=== PATIENT | male | born 1935 | race Caucasian/White ===

== ENCOUNTER 2019-12-17 23:13 | Inpatient (IN) | payer MEDICARE, BC ==
[~2019-12-17] VITALS: Ht 185.4 cm; Wt 86.6 kg
[2019-12-17] MEDS ORDERED: DEXTROSE 50%-WATER 50 ML DISP.SYRIN ONE (23:19)
--- NOTE | 2019-12-17 23:22 | NUR ---
PT CAME TO THE ED C/O LOW BLOOD SUGAR. UPON ARRIVAL BS WAS AT 32. PT CONFUSED, AGITATED, VSS, NO ACUTE DISTRESS NOTED. MD AT BEDSIDE. PT CONNECTED TO THE MONITOR AND POX
--- NOTE | 2019-12-17 23:25 | NUR ---
32 BLOOD SUGAR NOTED. MD MADE AWARE AT BEDSIDE. ORDERS RECEIVED
--- NOTE | 2019-12-17 23:28 | NUR ---
PT MEDICATED ORDERED
--- NOTE | 2019-12-17 23:29 | NUR ---
PATIENT IS AAOX4. NO SOB. BREATHING EVENLY AND UNLABORED ON ROOM AIR. CONNECTED TO BALLET SOLOIST.
[2019-12-17] MEDS ORDERED: DEXTROSE 50%-WATER 50 ML DISP.SYRIN IVP ONE (23:30)
[2019-12-17 23:47] LABS: BASOPHILS % (AUTO) 0.4 % (0.0-2.0); EOSINOPHILS % (AUTO) 1.2 % (0.0-6.0); HEMATOCRIT 43 % (39-51); HEMOGLOBIN 14.2 g/dL (13.5-17.5); LYMPHOCYTES # (AUTO) 1.9 /CMM (0.8-4.8); LYMPHOCYTES % (AUTO) 22.6 % (20.0-44.0); MEAN CORPUSCULAR HGB CONC 33 g/dl (31.0-36.0); MEAN CORPUSCULAR VOLUME 97 fL (80-96); MONOCYTES # (AUTO) 0.6 /CMM (0.1-1.30); MONOCYTES % (AUTO) 7.5 % (2.0-12.0); NEUTROPHILS # (AUTO) 5.8 /CMM (1.8-8.9); NEUTROPHILS % (AUTO) 68.3 % (43.0-81.0); PLATELET COUNT (AUTO) 163 /CMM (150-450); RED BLOOD CELL COUNT(AUTO) 4.44 MIL/uL (4.5-6.0); WHITE BLOOD COUNT (AUTO) 8.5 K/uL (4.3-11.0)
--- NOTE | 2019-12-18 00:03 | NUR ---
PATIENT PROVIDED WITH SANDWICH TO EAT.
[2019-12-18 00:09] LABS: ALANINE AMINOTRANSFERASE 37 U/L (12-78); ALBUMIN 4.1 g/dL (3.4-5.0); ALKALINE PHOSPHATASE 135 U/L (46-116); ASPARTATE AMINOTRANSFERASE 39 U/L (15-37); BILIRUBIN,DIRECT 0.2 mg/dL (0.0-0.2); BILIRUBIN,TOTAL 0.7 mg/dL (0.2-1.0); CALCIUM, SERUM 9.7 mg/dL (8.5-10.1); CARBON DIOXIDE 30 mmol/L (21-32); CHLORIDE 105 mmol/L (98-107); CREATININE 1.4 mg/dL (0.6-1.3); LIPASE 106 U/L (73-393); POTASSIUM 4.3 mmol/L (3.5-5.1); SODIUM SERUM 143 mmol/L (136-145); TOTAL PROTEIN, SERUM 8.1 g/dL (6.4-8.2); UREA NITROGEN, BLOOD 48 mg/dL (7-18)
[2019-12-18] MEDS ORDERED: IOHEXOL-300 100 ML VIAL IV ONE (00:10)
[2019-12-18] MEDS ORDERED: IV NS 0.9% 250 ML IV ONE (00:11)
[2019-12-18] MEDS ORDERED: CT SWABBABLE VALVE TRANS SET 1 EA INFUS.SET MC ONE (00:11)
--- NOTE | 2019-12-18 00:34 | NUR ---
PATIENT TAKEN TO CT VIA GURNEY BY ELECTRICIAN SUPERVISOR SUBSTATION.
--- NOTE | 2019-12-18 00:48 | NUR ---
PATIENT RETURNED FROM CT VIA [facility].
--- NOTE | 2019-12-18 01:40 | NUR ---
DR. LÓPEZ SPEAKING WITH DR. WIGGINS
[2019-12-18] MEDS ORDERED: DEXTROSE 50%-WATER 50 ML DISP.SYRIN IV PRN (02:00)
[2019-12-18] MEDS ORDERED: ACETAMINOPHEN 650 MG/SUPP.RECT RC PRN (02:00)
[2019-12-18] MEDS ORDERED: MORPHINE SULFATE INJ 2 MG/ML DISP.SYRIN IV PRN (02:00)
[2019-12-18] MEDS ORDERED: ONDANSETRON HCL/PF 4 MG/2 ML VIAL IVP PRN (02:00)
--- NOTE | 2019-12-18 02:19 | NUR ---
PATIENT IS INSERTED A NG TUBE WITH 63CM MEASURED AT THE TIP OF THE RIGHT NOSTRIL.
--- NOTE | 2019-12-18 02:22 | NUR ---
GATHERING WORKER AT BEDSIDE FOR XRAY
--- NOTE | 2019-12-18 03:03 | NUR ---
REC'D NEG COVID RESULTS BY BRANDY FROM LAB. AWARE.
--- NOTE | 2019-12-18 03:13 | NUR ---
BED ASSIGNMENT 325-2
--- NOTE | 2019-12-18 03:32 | NUR ---
REPORT GIVEN TO KARAN HERNANDEZ FOR ZEE.
[2019-12-18 03:50] VITALS: BP 138/85
--- NOTE | 2019-12-18 03:56 | NUR ---
PATIENT TAKEN TO ASSIGNED ROOM.
[2019-12-18 04:00] VITALS: BP 138/85
--- NOTE | 2019-12-18 04:00 | NUR ---
RN OPENING NOTE PT TRANSFERRED FROM ER VIA GURNEY IN STABLE CONDITION.
[2019-12-18] MEDS ORDERED: INSU100V27 SQ (04:01)
[2019-12-18] MEDS ORDERED: METO25TA4 PO (04:03)
[2019-12-18] MEDS ORDERED: LOSA50TA39 PO (04:04)
[2019-12-18] MEDS ORDERED: LOSA50TA3 PO (04:04)
[2019-12-18] MEDS ORDERED: AMLO5TAB9 PO (04:12)
[2019-12-18] MEDS ORDERED: CHOL400T11 GT (04:12)
[2019-12-18] MEDS ORDERED: APIX5TAB PO (04:12)
[2019-12-18] MEDS ORDERED: SOTA160T PO (04:12)
[2019-12-18 05:08] LABS: APPEARANCE,URINE CLEAR (CLEAR); BILIRUBIN,URINE NEGATIVE (NEGATIVE); BLOOD, URINE NEGATIVE Ery/uL (NEGATIVE); COLOR,URINE YELLOW (YELLOW); KETONES,URINE NEGATIVE (NEGATIVE); LEUKOCYTE ESTERASE ,URINE NEGATIVE (NEGATIVE); NITRITE, URINE NEGATIVE (NEGATIVE); PROTEIN,URINE TRACE mg/dl (NEGATIVE); UGLUCOSE NEGATIVE (NEGATIVE); UROBILINOGEN,URINE 0.2 EU/dL (0.2)
[2019-12-18 05:10] LABS: BACTERIA,URINE Few /HPF (None Seen); RBC,URINE 0-2 /HPF (0-2); SQUAMOUS EPITHELIAL CELL,UR Few /HPF (None Seen)
[2019-12-18] MEDS: BLOOD SUGAR DIAGNOSTIC 1 EACH STRIP IN SCH ×5 (05:27→21:04)
[2019-12-18] MEDS: IV D5/0.45 NACL 1,000 ML IV PRN ×2 (05:30→19:00)
--- NOTE | 2019-12-18 06:00 | NUR ---
RN NOTE BS 191 INSULIN NON ADMINISTERED BECAUSE PT IS NPO. CHARGE NURSE MADE AWARE
[2019-12-18] MEDS: INSULIN REGULAR, HUMAN 100 UNIT/ML 3 ML VIAL SQ PRN ×4 (07:09→21:05)
--- NOTE | 2019-12-18 07:15 | NUR ---
RN CLOSING NOTE PT REMAINED STABLE DURING DURING MY SHIFT. ENDORSED TO DAY SHIFT FOR ZEE.
--- NOTE | 2019-12-18 07:40 | NUR ---
RN OPENING NOTES RECEIVED PATIENT IN BED A/O X 4. PATIENT IS ON ROOM AIR, NO S/S OF RESPIRATORY DISTRESS. NASAL GASTRIC RIGHT NARE INTERMITTENT LOW SUCTION WITH RED COLOR DRAINAGE NOTED. DIET IS NPO. NOTED RAC # 18 IV ACEESSL Addendum: 12/18/19 at 1833 by YESY MENDOZA RN DONE AT [address], BED LOCKED IN LOWEST POSITION, CALL LIGHT WITHIN EASY REACH. WILL CONTINUE TO MONITOR.
[2019-12-18 08:00] VITALS: BP 141/79
[2019-12-18 08:05] LABS: BASOPHILS % (AUTO) 0.4 % (0.0-2.0); EOSINOPHILS % (AUTO) 0.1 % (0.0-6.0); HEMATOCRIT 43 % (39-51); HEMOGLOBIN 14.4 g/dL (13.5-17.5); LYMPHOCYTES # (AUTO) 0.8 /CMM (0.8-4.8); LYMPHOCYTES % (AUTO) 12.9 % (20.0-44.0); MEAN CORPUSCULAR HGB CONC 34 g/dl (31.0-36.0); MEAN CORPUSCULAR VOLUME 96 fL (80-96); MONOCYTES # (AUTO) 0.4 /CMM (0.1-1.30); MONOCYTES % (AUTO) 6.2 % (2.0-12.0); NEUTROPHILS # (AUTO) 5.2 /CMM (1.8-8.9); NEUTROPHILS % (AUTO) 80.4 % (43.0-81.0); PLATELET COUNT (AUTO) 152 /CMM (150-450); RED BLOOD CELL COUNT(AUTO) 4.45 MIL/uL (4.5-6.0); WHITE BLOOD COUNT (AUTO) 6.5 K/uL (4.3-11.0)
[2019-12-18 08:27] LABS: ALANINE AMINOTRANSFERASE 29 U/L (12-78); ALBUMIN 3.7 g/dL (3.4-5.0); ALKALINE PHOSPHATASE 128 U/L (46-116); ASPARTATE AMINOTRANSFERASE 27 U/L (15-37); CALCIUM, SERUM 9.6 mg/dL (8.5-10.1); CARBON DIOXIDE 25 mmol/L (21-32); CHLORIDE 102 mmol/L (98-107); CREATININE 1.2 mg/dL (0.6-1.3); GLUCOSE 258 mg/dL (74-106); MAGNESIUM 2.3 mg/dL (1.8-2.4); PHOSPHORUS 3.1 mg/dL (2.5-4.9); POTASSIUM 4.5 mmol/L (3.5-5.1); SODIUM SERUM 137 mmol/L (136-145); TOTAL PROTEIN, SERUM 7.5 g/dL (6.4-8.2); UREA NITROGEN, BLOOD 41 mg/dL (7-18)
[2019-12-18 08:33] LABS: CHOLESTEROL 96 mg/dL (<200); HDL CHOLESTEROL 44 mg/dL (40-60); LDL 42 mg/dL (0-99); THYROID STIMULATING HORMONE 2.013 uIU/mL (0.358-3.74); TRIGLYCERIDES 33 mg/dL (30-150)
[2019-12-18] MEDS: PANTOPRAZOLE 40 MG VIAL IV SCH (10:07)
--- NOTE | 2019-12-18 15:20 | NUR ---
RN NOTES DR. LLANOS HAD A CONSULT WITH PATIENT. PER MD TO CLAMP NGT AND TO CHANGE DIET FROM NPO TO SOFT DIET, PER MD TO PLEASE CALL KITCH[employer] AND ORDER SALAD WITH HARD BOIL EGGS. ORDERS VERBALIZE BACK AND CARRIED OUT.
[2019-12-18 16:00] VITALS: BP 124/75
--- NOTE | 2019-12-18 18:41 | NUR ---
RN CLOSING NOTES WILL ENDORSED TO PM NURSE. PATIENT IN BED A/O X 4. PATIENT IS ON ROOM AIR, NO S/S OF RESPIRATORY DISTRESS. NASAL GASTRIC RIGHT NARE CLAMPED PER MD ORDER. PATIENT ON SOFT DIET THEN NPO AFTER MIDNIGHT. IV ACCESS RAC # 18. ALL ORDERS CARRIED OUT DURING SHIFT, SAFETY MEASURES IN PLACE, BED LOCKED AND IN LOWEST POSITION, CALL LIGHT WITHIN EASY REACH.
--- NOTE | 2019-12-18 19:48 | NUR ---
MS RN OPENING NOTES PATIENT RECEIVED RESTING IN BED, A/OX4. STABLE ON RA WITH BREATHING EVEN AND UNLABORED, NO SOB NOTED. NO SIGNS OF ACUTE DISTRESS. NO COMPLAINTS OF PAIN OR DISCOMFORT. NG TUBE NOTED ON R NARE, CLAMPED. IV LOCATED ON RA AC #18 RUNNINNG D5 1/2 NS @ 75 ML/HR. SAFETY PRECAUTIONS IN PLACE WITH BED IN LOWEST POSTION, CALL LIGHT WITHIN REACH, BREAKS ON, SIDE RAILS UP. WILL CONTINUE TO MONITOR THROUGHOUT THE NIGHT.
[2019-12-18 20:00] VITALS: BP 103/57
[2019-12-19] MEDS ORDERED: INSU100V7 SQ ×2 (00:55→00:59)
[2019-12-19] MEDS: BLOOD SUGAR DIAGNOSTIC 1 EACH STRIP IN SCH ×4 (01:14→13:00)
[2019-12-19] MEDS: INSULIN REGULAR, HUMAN 100 UNIT/ML 3 ML VIAL SQ PRN ×3 (01:16→09:22)
[2019-12-19] MEDS ORDERED: INSULIN GLARGINE, 100 UNIT/ML CARTRIDGE SQ ONE (02:33)
--- NOTE | 2019-12-19 02:39 | NUR ---
MS RN NOTES PATIENT CONCERNED ABOUT BLOOD SUGAR HIS INSULIN REGIMEN AT HOME IS DIFFERENT. CONTACT MD WIGGINS ABOUT PATIENT CONCERNS. FSBS 246 INSULIN LANTUS 10 U ADMINISTERED. ASKED PATIENT TO GIVE SPECIFIC SLIDING SCALE HE FOLLOWS AT HOME SO IT CAN BE COMMUNICATED TO MD. WILL PROVIDE TOMORROW. WILL CONTINUE TO MONITOR FOR NOW.
[2019-12-19] MEDS: IV D5/0.45 NACL 1,000 ML IV PRN (06:36)
--- NOTE | 2019-12-19 07:01 | NUR ---
MS RN CLOSING NOTES PATIENT RESTING IN BED, A/OX4. STABLE ON RA WITH BREATHING EVEN AND UNLABORED, NO SOB NOTED. NO SIGNS OF ACUTE DISTRESS. NO COMPLAINTS OF PAIN OR DISCOMFORT. NG TUBE NOTED ON R NARE, CLAMPED. IV LOCATED ON RA AC #18 RUNNINNG D5 1/2 NS @ 75 ML/HR. SAFETY PRECAUTIONS IN PLACE WITH BED IN LOWEST POSITION, CALL LIGHT WITHIN REACH, BREAKS ON, SIDE RAILS UP. ALL NEEDS ATTENDED TO. WILL ENDORSE TO ONCOMING SHIFT ABOUT ZEE.
[2019-12-19 08:00] VITALS: BP 124/73
[2019-12-19] MEDS: PANTOPRAZOLE 40 MG VIAL IV SCH (09:18)
[2019-12-19] MEDS ORDERED: LOSARTAN POTASSIUM 50 MG TABLET PO SCH (09:30)
[2019-12-19] MEDS ORDERED: METOPROLOL SUCCINATE 25 MG TAB.SR.24H PO SCH (09:30)
--- NOTE | 2019-12-19 09:43 | NUR ---
MS RN NOTES PATIENT SEEN AND EVALUATED BY DR. LLANOS CLEARED FOR DISCHARGE. ORDERS TO REMOVE NG TUBE.
--- NOTE | 2019-12-19 09:57 | NUR ---
MS RN NOTES PATIENT REPORTS HAVING A BM. HE ALSO REPORTS HAVING NO DISCOMFORT. NO BLOATING. NO PAIN. WILL CONTINUE TO MONITOR.
[2019-12-19] MEDS ORDERED: AMLODIPINE BESYLATE 5 MG TABLET PO SCH (10:27)
[2019-12-19] MEDS ORDERED: APIXABAN 5 MG TABLET PO ONE (10:30)
[2019-12-19 11:05] VITALS: BP 124/73
--- NOTE | 2019-12-19 13:25 | NUR ---
MS RN NOTES PATIENT DISCHARGED HOME WITH . DISCHARGE TEACHING PROVIDED VERBALIZED UNDERSTANDING. PATIENT DENIES ANY PAIN OR DISCOMFORT. DISCHARGE PROTOCOL FOLLOWED. PATIENT REFUSED ACCU CHECK STATES HE WILL CHECK AT HOME. PATIENT KNOWLEDGEABLE ABOUT MEDICATIONS. ALL BELONGINGS ACCOUNTED FOR. BELONGING LIST SIGNED. MD AWARE OF ALL ABNORMAL LABS AND TESTS. PERIPHERAL IV REMOVED WITH MINIMAL BLEEDING. ID BAND REMOVED.
[2019-12-20] MEDS ORDERED: CHOLECALCIFEROL (VITAMIN D 3) 400 UNIT TABLET GT SCH (09:00)
[2019-12-20] MEDS ORDERED: APIXABAN 5 MG TABLET PO SCH (10:27)
== END 2019-12-19 13:30 | disposition home or self-care (01) | DRG 388 ==
LOC: ER 23:17 → MED 12-18 03:14 → TELE 12-18 03:51 → MED 12-18 08:21
PROVIDERS: ADMIT Nurse Practitioner Acute Care; ATTEND Nurse Practitioner Acute Care
DX: K56.609 Unspecified intestinal obstruction, unspecified as to partial versus complete obstruction (principal); G93.41 Metabolic encephalopathy; N17.0 Acute kidney failure with tubular necrosis; D68.69 Other thrombophilia; I48.91 Unspecified atrial fibrillation; N40.0 Benign prostatic hyperplasia without lower urinary tract symptoms; Z79.01 Long term (current) use of anticoagulants; I10 Essential (primary) hypertension; Z95.0 Presence of cardiac pacemaker; E78.5 Hyperlipidemia, unspecified; E86.1 Hypovolemia; Z79.4 Long term (current) use of insulin; R40.2362 Coma scale, best motor response, obeys commands, at arrival to emergency department; R40.2142 Coma scale, eyes open, spontaneous, at arrival to emergency department; R40.2252 Coma scale, best verbal response, oriented, at arrival to emergency department; E10.649 Type 1 diabetes mellitus with hypoglycemia without coma
CPT/HCPCS: 36415; 71045-TC; 80048-TC; 80053-TC; 80061-TC; 80076-TC; 81000-TC; 82378; 82962-TC; 83605-TC; 83690-TC; 83735-TC; 84100-TC; 84439-TC; 84443-TC; 84484-TC; 85025-TC; 85610-TC; 87081-TC; 93307-TC; C9113; G0378; J1815; J3490; J7030; J7050; Q9967

== ENCOUNTER 2024-10-22 12:46 | Inpatient (IN) | payer MEDICARE, BC ==
[~2024-10-22] VITALS: Ht 180.3 cm; Wt 90.7 kg
[~2024-10-22 12:46] MED LIST: AMLO-212 PO; APIX5TAB PO; CHOL400T11 GT; INSU100V27 SQ; INSU100V7 SQ; LOSA50TA3 PO; METO25TA4 PO; SOTA160T PO
[2024-10-22] MEDS: IV NS 0.9% 1,000 ML BAG IV ONE ×2 (13:20→15:10)
[2024-10-22] MEDS ORDERED: INSU100I58 SQ (14:16)
[2024-10-22] MEDS ORDERED: EMPA25TA PO (14:16)
[2024-10-22] MEDS ORDERED: CALC0.253 PO (14:16)
[2024-10-22] MEDS ORDERED: ATOR40TA PO (14:16)
[2024-10-22] MEDS ORDERED: INSU100I24 SQ (14:16)
[2024-10-22] MEDS ORDERED: LOSA100T31 PO (14:16)
[2024-10-22] MEDS ORDERED: SOTA80TA10 PO (14:16)
[2024-10-22 14:23] LABS: BASOPHILS % (AUTO) 0.3 % (0.0-2.0); EOSINOPHILS # (AUTO) 0.1 K/uL (0.0-0.7); EOSINOPHILS % (AUTO) 0.5 % (0.0-6.0); HEMATOCRIT 50 % (39-51); HEMOGLOBIN 16.1 g/dL (13.5-17.5); LYMPHOCYTES # (AUTO) 1.2 K/uL (0.8-4.8); LYMPHOCYTES % (AUTO) 11.8 % (20.0-44.0); MEAN CORPUSCULAR HEMOGLOBIN 32 PG (26.0-33.0); MEAN CORPUSCULAR HGB CONC 33 g/dl (31.0-36.0); MEAN CORPUSCULAR VOLUME 100 fL (80-96); MONOCYTES # (AUTO) 0.5 K/uL (0.1-1.30); MONOCYTES % (AUTO) 5.4 % (2.0-12.0); PLATELET COUNT (AUTO) 119 K/uL (150-450); RED BLOOD CELL COUNT(AUTO) 4.98 MIL/uL (4.5-6.0); RED CELL DISTRIBUTION WIDTH 15.5 % (11.5-15.0); WHITE BLOOD COUNT (AUTO) 9.8 K/uL (4.3-11.0)
[2024-10-22 14:30] LABS: ALBUMIN 3.7 g/dL (3.4-5.0); BILIRUBIN,TOTAL 0.7 mg/dL (0.2-1.0); INR 1.04 (0.91-1.10); PARTIAL THROMBOPLASTIN TIME 28.9 SEC (24.3-34.3); POTASSIUM 4.4 mmol/L (3.5-5.1); TOTAL PROTEIN, SERUM 8.5 g/dL (6.4-8.2)
[2024-10-22 14:33] LABS: SALICYLATE 0.9 mg/dL (2.8-20.0)
[2024-10-22 14:38] LABS: LACTIC ACID 3.2 mmol/L (0.4-2.0)
[2024-10-22 14:41] LABS: THYROID STIMULATING HORMONE 5.01 uIU/mL (0.358-3.74)
[2024-10-22] MEDS ORDERED: DEXTROSE 50%-WATER 50 ML DISP.SYRIN ONE (14:42)
[2024-10-22 14:43] LABS: CALCIUM, SERUM 9.6 mg/dL (8.5-10.1); CREATININE 1.3 mg/dL (0.6-1.3)
[2024-10-22 14:46] LABS: BILIRUBIN,DIRECT 0.2 mg/dL (0.0-0.2)
[2024-10-22] MEDS: DEXTROSE 50%-WATER 50 ML DISP.SYRIN IVP ONE (14:47)
[2024-10-22 14:48] LABS: SERUM AMMONIA 33 umol/L (11-32)
[2024-10-22 14:52] LABS: ALCOHOL, BLOOD < 3 mg/dL (0-10)
[2024-10-22] MEDS ORDERED: CEFTRIAXONE 1GM BAG (ER ONLY) 50 ML IV ONE (15:12)
[2024-10-22] MEDS: CEFTRIAXONE 1GM BAG (ER ONLY) 50 ML IV ONE (15:15)
[2024-10-22 15:31] LABS: APPEARANCE,URINE CLEAR (CLEAR); BILIRUBIN,URINE NEGATIVE (NEGATIVE); BLOOD, URINE 1+ Ery/uL (NEGATIVE); COLOR,URINE YELLOW (YELLOW); KETONES,URINE NEGATIVE (NEGATIVE); LEUKOCYTE ESTERASE ,URINE NEGATIVE (NEGATIVE); NITRITE, URINE NEGATIVE (NEGATIVE); PROTEIN,URINE 2+ mg/dl (NEGATIVE); UGLUCOSE 3+ mg/dL (NEGATIVE); UROBILINOGEN,URINE 0.2 EU/dL (0.2)
[2024-10-22 15:38] LABS: AMPHETAMINE, URINE NEGATIVE (NEGATIVE); BARBITURATE, URINE NEGATIVE (NEGATIVE); BENZODIAZEPINE, URINE NEGATIVE (NEGATIVE); CANNABINOID, URINE NEGATIVE (NEGATIVE); COCCAINE, URINE NEGATIVE (NEGATIVE); OPIATE, URINE NEGATIVE (NEGATIVE); PHENCYCLIDINE SCREEN,URINE NEGATIVE (NEGATIVE)
[2024-10-22] MEDS ORDERED: ACETAMINOPHEN 325 MG TABLET PO PRN (16:00)
[2024-10-22] MEDS ORDERED: MAG HYDROX/AL HYDROX/SIMETH 30 ML UDC PO PRN (16:00)
[2024-10-22] MEDS ORDERED: Z GUARD REMEDY 4 OZ OINT TP PRN (16:00)
[2024-10-22] MEDS ORDERED: MAGNESIUM HYDROXIDE 30 ML UDC PO PRN (16:00)
[2024-10-22] MEDS ORDERED: ONDANSETRON HCL/PF 4 MG/2 ML VIAL IVP PRN (16:00)
[2024-10-22 16:28] LABS: ADD URINE CULTURE NO; BACTERIA,URINE None seen /HPF (None Seen); WBC,URINE 0-2 /HPF (0-3)
[2024-10-22 16:30] VITALS: TEMP 97.6; O2SAT 96
[2024-10-22] MEDS ORDERED: INSULIN REGULAR, HUMAN 100 UNIT/ML 3 ML VIAL SQ PRN (16:30)
[2024-10-22] MEDS ORDERED: DEXTROSE 50%-WATER 50 ML DISP.SYRIN IV PRN (16:30)
[2024-10-22] MEDS ORDERED: SOTALOL HCL 80 MG TABLET PO SCH (17:00)
[2024-10-22] MEDS: APIXABAN 5 MG TABLET PO SCH (17:21)
[2024-10-22] MEDS: ATORVASTATIN 40 MG TABLET PO SCH (17:21)
[2024-10-22] MEDS: BLOOD SUGAR DIAGNOSTIC 1 EACH STRIP IN SCH (18:38)
[2024-10-22 20:00] VITALS: BP 110/54; TEMP 98.6; O2SAT 98
[2024-10-22] MEDS: IV D5/ 0.9% NACL 1,000 ML IV PRN (20:03)
[2024-10-23] VITALS: BP 124/65; TEMP 98.6; O2SAT 97
[2024-10-23 04:00] VITALS: BP 102/72; TEMP 98.6; O2SAT 98
[2024-10-23 07:25] LABS: BASOPHILS % (AUTO) 0.4 % (0.0-2.0); EOSINOPHILS % (AUTO) 0.6 % (0.0-6.0); HEMATOCRIT 38 % (39-51); HEMOGLOBIN 12.7 g/dL (13.5-17.5); LYMPHOCYTES # (AUTO) 1.5 K/uL (0.8-4.8); LYMPHOCYTES % (AUTO) 29.6 % (20.0-44.0); MEAN CORPUSCULAR HEMOGLOBIN 33 PG (26.0-33.0); MEAN CORPUSCULAR HGB CONC 34 g/dl (31.0-36.0); MEAN CORPUSCULAR VOLUME 97 fL (80-96); MONOCYTES # (AUTO) 0.5 K/uL (0.1-1.30); MONOCYTES % (AUTO) 10.3 % (2.0-12.0); NEUTROPHILS # (AUTO) 3.1 K/uL (1.8-8.9); NEUTROPHILS % (AUTO) 59.1 % (43.0-81.0); PLATELET COUNT (AUTO) 109 K/uL (150-450); RED BLOOD CELL COUNT(AUTO) 3.91 MIL/uL (4.5-6.0); RED CELL DISTRIBUTION WIDTH 15.2 % (11.5-15.0); WHITE BLOOD COUNT (AUTO) 5.2 K/uL (4.3-11.0)
[2024-10-23 07:51] LABS: CALCIUM, SERUM 8.5 mg/dL (8.5-10.1); CREATININE 1.3 mg/dL (0.6-1.3); MAGNESIUM 2.1 mg/dL (1.8-2.4); PHOSPHORUS 3.1 mg/dL (2.5-4.9); POTASSIUM 4.9 mmol/L (3.5-5.1)
[2024-10-23 08:00] VITALS: BP 136/73; TEMP 97.9; O2SAT 99
[2024-10-23] MEDS: PANTOPRAZOLE 40 MG TABLET.DR PO SCH (08:07)
[2024-10-23] MEDS: METOPROLOL SUCCINATE 25 MG TAB.SR.24H PO SCH (08:23)
[2024-10-23] MEDS: LOSARTAN POTASSIUM 50 MG TABLET PO SCH (08:23)
[2024-10-23] MEDS: AMLODIPINE BESYLATE 5 MG TABLET PO SCH (08:24)
[2024-10-23] MEDS ORDERED: CALCITRIOL 0.25 MCG CAPSULE PO SCH (09:00)
[2024-10-23] MEDS: SOTALOL AF 80 MG TABLET PO SCH (09:43)
[2024-10-23] MEDS ORDERED: DEXTROSE 50%-WATER 50 ML DISP.SYRIN IV PRN (10:00)
[2024-10-23] MEDS: BLOOD SUGAR DIAGNOSTIC 1 EACH STRIP IN SCH (11:19)
[2024-10-23] MEDS: INSULIN REGULAR, HUMAN 100 UNIT/ML 3 ML VIAL SQ PRN (11:20)
[2024-10-23 12:00] VITALS: BP 125/71; TEMP 98.6; O2SAT 100
[2024-10-23] MEDS: CEFTRIAXONE 1 G in IV D5W 50 ML IV SCH (14:12)
[2024-10-23] MEDS ORDERED: SOTA80TA6 PO (14:37)
[2024-10-23] MEDS ORDERED: CALC0.258 PO (14:37)
[2024-10-24] MEDS ORDERED: CALCITRIOL 0.25 MCG CAPSULE PO SCH (09:00)
== END 2024-10-23 16:15 | disposition home or self-care (01) | DRG 637 ==
LOC: ER 12:53 → TELE1 15:33 → UNDOADMIN 15:33 → TELE1 15:39 → TELE-TD 15:39
PROVIDERS: ADMIT Nurse Practitioner Acute Care; ATTEND Nurse Practitioner Acute Care
DX: E10.649 Type 1 diabetes mellitus with hypoglycemia without coma (principal); G93.41 Metabolic encephalopathy; I21.A1 Myocardial infarction type 2; E87.20 Acidosis, unspecified; I48.20 Chronic atrial fibrillation, unspecified; I48.0 Paroxysmal atrial fibrillation; Z79.01 Long term (current) use of anticoagulants; I25.10 Atherosclerotic heart disease of native coronary artery without angina pectoris; E10.22 Type 1 diabetes mellitus with diabetic chronic kidney disease; N18.9 Chronic kidney disease, unspecified; I25.82 Chronic total occlusion of coronary artery; I12.9 Hypertensive chronic kidney disease with stage 1 through stage 4 chronic kidney disease, or unspecified chronic kidney disease; E78.5 Hyperlipidemia, unspecified; N40.0 Benign prostatic hyperplasia without lower urinary tract symptoms; Z98.890 Other specified postprocedural states; Z79.84 Long term (current) use of oral hypoglycemic drugs; Z95.0 Presence of cardiac pacemaker; Z91.81 History of falling; Z79.4 Long term (current) use of insulin
CPT/HCPCS: 36415; 70450-TC; 71045-TC; 80048-TC; 80061-TC; 80076-TC; 81001; 82140-TC; 82962-TC; 83605-TC; 83735-TC; 84100-TC; 84439-TC; 84443-TC; 84484-TC; 85025-TC; 85610-TC; 85730-TC; 87040-TC; 87086-TC; 93307-TC; 97110-TC; 97116-TC; 97530-TC; 97535-TC; A4223; G0378; G0480; J0696; J1815; J7030; J7042; J7060

== ENCOUNTER 2024-11-29 18:25 | Emergency (ER) | payer MEDICARE, BC ==
[~2024-11-29] VITALS: Ht 188 cm; Wt 85.3 kg
[~2024-11-29 18:25] MED LIST changes: +ATOR40TA PO; +CALC0.253 PO; +CALC0.258 PO; -CHOL400T11 GT; +EMPA25TA PO; +INSU100I58 SQ; -INSU100V27 SQ; -INSU100V7 SQ; +LOSA100T31 PO; -LOSA50TA3 PO; -SOTA160T PO; +SOTA80TA10 PO; +SOTA80TA6 PO
[2024-11-29 19:54] LABS: PLATELET COUNT (AUTO) 122 K/uL (150-450); RED BLOOD CELL COUNT(AUTO) 4.27 MIL/uL (4.5-6.0); RED CELL DISTRIBUTION WIDTH 15.4 % (11.5-15.0); WHITE BLOOD COUNT (AUTO) 6.8 K/uL (4.3-11.0)
[2024-11-29 20:07] LABS: CALCIUM, SERUM 9.2 mg/dL (8.5-10.1); UREA NITROGEN, BLOOD 44 mg/dL (7-18)
[2024-11-29 20:08] LABS: ASPARTATE AMINOTRANSFERASE 19 U/L (15-37); TOTAL PROTEIN, SERUM 7.2 g/dL (6.4-8.2)
[2024-11-29 20:10] LABS: SODIUM SERUM 135 mmol/L (136-145)
[2024-11-29 20:11] LABS: CREATININE 1.6 mg/dL (0.6-1.3)
[2024-11-29 21:05] VITALS: BP 104/69; TEMP 97.8; O2SAT 98
== END 2024-11-29 21:05 | disposition home or self-care (01) ==
LOC: ER 18:27
DX: E10.649 Type 1 diabetes mellitus with hypoglycemia without coma (principal); E78.5 Hyperlipidemia, unspecified; I10 Essential (primary) hypertension; I48.91 Unspecified atrial fibrillation; Z79.01 Long term (current) use of anticoagulants; Z79.4 Long term (current) use of insulin; Z79.84 Long term (current) use of oral hypoglycemic drugs; Z79.899 Other long term (current) drug therapy; Z95.0 Presence of cardiac pacemaker
CPT/HCPCS: 36415; 80053-TC; 82962-TC; 84484-TC; 85025-TC